=== PATIENT | male | born 1970 | race Caucasian/White ===

== ENCOUNTER 2020-08-12 13:06 | Emergency (ER) | payer BC ==
--- NOTE | 2020-08-12 15:09 | EDM.PDOC ---
ED HPI GENERAL MEDICAL PROBLEM - General Chief Complaint: Respiratory Problem Stated Complaint: COUGH/SOB - POSS COVID Time Seen by Provider: 08/12/20 13:23 Source of Information: Reports: Patient History Limitations: Reports: No Limitations - History of Present Illness INITIAL COMMENTS - FREE TEXT/NARRATIVE: Patient is a 50-year-old male presenting to the emergency department with complaints of cough, fevers, and intermittent shortness of breath. Symptoms started last . His girlfriend, who he lives with his COVID positive, however he has not been tested. T-max at home was around 101. He has been using Tylenol and ibuprofen as needed. He states that overall he feels well and does not have shortness of breath except occasionally he has "coughing fits "and it is difficult for him to catch his breath after this. He does feel, that overall he is improving, but he wanted to be sure that he is not getting pneumonia. His any abdominal pain, chest pain, nausea, vomiting, or diarrhea. - Related Data Allergies Allergy/AdvReac Type Severity Reaction Status Date / Time No Known Allergies Allergy Verified 08/12/20 13:27 Home Meds: Home Meds . [No Known Home Meds] 08/12/20 [History] Past Medical History - Past Health History Medical/Surgical History: Denies Medical/Surgical History Social & Family History - Tobacco Use Smoking Status *Q: Never Smoker - Caffeine Use Caffeine Use: Reports: None - Recreational Drug Use Recreational Drug Use: No ED ROS GENERAL - Review of Systems Review Of Systems: See Below Constitutional: Reports: Fever, Chills, Fatigue HEENT: Reports: No Symptoms Respiratory: Reports: Shortness of Breath, Cough. Denies: Wheezing, Pleuritic Chest Pain Cardiovascular: Reports: No Symptoms. Denies: Chest Pain, Dyspnea on Exertion, Syncope Endocrine: Reports: No Symptoms GI/Abdominal: Reports: No Symptoms. Denies: Abdominal Pain, Diarrhea, Nausea, Vomiting : Reports: No Symptoms Musculoskeletal: Reports: No Symptoms Skin: Reports: No Symptoms Neurological: Reports: No Symptoms Psychiatric: Reports: No Symptoms Hematologic/Lymphatic: Reports: No Symptoms Immunologic: Reports: No Symptoms ED EXAM, GENERAL - Physical Exam Exam: See Below General Appearance: Alert, WD/WN, No Apparent Distress Respiratory/Chest: No Respiratory Distress, Lungs Clear, Normal Breath Sounds, No Accessory Muscle Use, Chest Non-Tender Cardiovascular: Normal Peripheral Pulses, Regular Rate, Rhythm, No Edema, No Gallop, No JVD, No Murmur, No Rub Neurological: Alert, Oriented, CN II-XII Intact, Normal Cognition, Normal Gait, Normal Reflexes, No Motor/Sensory Deficits Psychiatric: Normal Affect, Normal Mood Skin Exam: Warm, Dry, Intact, Normal Color, No Rash Course - Vital Signs Last Recorded V/S: Last Vital Signs Temp 98.5 F 08/12/20 13:24 Pulse 90 08/12/20 13:24 Resp 20 08/12/20 13:24 BP 161/110 H 08/12/20 13:24 Pulse Ox 98 08/12/20 13:24 - Re-Assessments/Exams Free Text/Narrative Re-Assessment/Exam: Patient is a 50-year-old male presenting to the emergency department with complaints of cough and occasional shortness of breath, however he states he feels the symptoms are improving. Chest x-ray showed no evidence infiltrate suggestive of pneumonia. Oxygen saturations have been normal throughout his stay in the ER. We will complete a coronavirus test today. Discussed symptomatic treatment. Return to ER for worsening symptoms. Departure - Departure Time of Disposition: 14:51 Disposition: Home, Self-Care 01 Condition: Good Clinical Impression: Cough, Viral illness - Discharge Information *PRESCRIPTION DRUG MONITORING PROGRAM REVIEWED*: No *COPY OF PRESCRIPTION DRUG MONITORING REPORT IN PATIENT SATYA: No Instructions: Viral Respiratory Infection, [id number] Referrals: PCP,None [Primary Care Provider] - Forms: ED Department Discharge Additional Instructions: You were seen in the emergency department today for fevers, cough, as well as shortness of breath after your coughing fits. Chest x-ray was completed and shows no concerning areas of pneumonia. Your oxygen saturations were normal thoughout your time in the ER. As we discussed, since your girlfriend who lives with is positive for COVID, it is a safe assumption that you are also positive for COVID. A COVID test has been done today. You will be notified when these results are available which is typically 24 to 72 hours. Recommend that you purchase a pulse oximeter [id number] to monitor your oxygen saturations at home. If you are maintaining an oxygen saturation of less than 90%, recommend that she return to the emergency department for reevaluation. You may use [id number] Tylenol or ibuprofen as needed for fever or discomfort. Ensure that you are taking in an adequate amount of fluids. Follow the instructions of the [facility] with regards to isolation and quarantine. If you feel that you are worsening in any way, please not hesitate to return to the emergency department for reevaluation. Sepsis Event Note (ED) - Evaluation Sepsis Screening Result: No Definite Risk
--- NOTE | 2020-09-07 08:44 | CR ---
Addendum created by Alejandro Beasley MD on 09/06/2020 3:20 PM Central Time ([place] & [place]): This exam was performed on 08/12/2020 but only presented for FINAL interpretation today. Initial Report created on 09/06/2020 3:19 PM Central Time ([place] & [place]): PROCEDURE INFORMATION: Exam: XR Chest, 1 View Exam date and time: 08/12/2020 1:47 PM Age: 50 years old Clinical indication: Pain; Chest pressure TECHNIQUE: Imaging protocol: XR of the chest Views: 1 view. COMPARISON: No relevant prior studies available. FINDINGS: Lungs: Mild left basilar linear opacities, likely atelectasis. Pleural space: No pneumothorax. Heart/Mediastinum: Unremarkable. Bones/joints: Unremarkable for patient's age. IMPRESSION: Mild left basilar linear opacities, likely atelectasis. Thank you for allowing us to participate in the care of your patient. Dictated and Authenticated by: Alejandro Beasley MD 09/06/2020 3:19 PM Central Time ([place] & [place]) MTDD
== END 2020-08-12 15:15 | disposition home or self-care (01) ==
LOC: JD.ED 13:06
DX: U07.1 COVID-19 (principal)
CPT/HCPCS: 71045; 71045-26; 99282; 99285-25; U0002